=== PATIENT | male | born 1960 | race African-American/Black ===

== ENCOUNTER 2022-03-11 10:01 | Inpatient (IN) | payer MEDICARE, OTHER ==
[~2022-03-11] VITALS: Ht 190.5 cm; Wt 135.6 kg
--- NOTE | 2022-03-11 10:09 | NUR ---
BIB [facility] FROM HOME, C/O GENERALIZED WEAKNESS. PT STATED THAT HE HAS CHRONIC BACK AND LOWER EXTREMITY PAIN, DENIES CHEST PAIN. ATTACHED TO MONITOR. AWAITING MD ORDERS.
--- NOTE | 2022-03-11 10:13 | NUR ---
SUZANNE VENTURA 18. LABS DRAWN AND COLLECTED AT BEDSIDE
--- NOTE | 2022-03-11 10:20 | NUR ---
COVID TEST COLLECTED AND SENT
[2022-03-11 10:46] LABS: BASOPHILS % (AUTO) 0.4 % (0.0-2.0); EOSINOPHILS % (AUTO) 4.1 % (0.0-6.0); HEMATOCRIT 39 % (39-51); HEMOGLOBIN 12.9 g/dL (13.5-17.5); LYMPHOCYTES # (AUTO) 0.7 K/uL (0.8-4.8); LYMPHOCYTES % (AUTO) 8.2 % (20.0-44.0); MEAN CORPUSCULAR HGB CONC 33 g/dl (31.0-36.0); MEAN CORPUSCULAR VOLUME 86 fL (80-96); MONOCYTES # (AUTO) 0.7 K/uL (0.1-1.30); NEUTROPHILS # (AUTO) 6.5 K/uL (1.8-8.9); NEUTROPHILS % (AUTO) 79.3 % (43.0-81.0); PLATELET COUNT (AUTO) 226 K/uL (150-450); RED BLOOD CELL COUNT(AUTO) 4.55 MIL/uL (4.5-6.0); WHITE BLOOD COUNT (AUTO) 8.2 K/uL (4.3-11.0)
[2022-03-11] MEDS ORDERED: KETOROLAC TROMETHAMINE INJ 30 MG/ML VIAL ONE (11:19)
[2022-03-11 11:26] LABS: CALCIUM, SERUM 9.4 mg/dL (8.5-10.1); CARBON DIOXIDE 25 mmol/L (21-32); CHLORIDE 101 mmol/L (98-107); CREATININE 1.4 mg/dL (0.6-1.3); GLUCOSE 85 mg/dL (74-106); POTASSIUM 3.9 mmol/L (3.5-5.1); SODIUM SERUM 139 mmol/L (136-145); UREA NITROGEN, BLOOD 19 mg/dL (7-18)
[2022-03-11] MEDS ORDERED: KETOROLAC TROMETHAMINE INJ 30 MG/ML VIAL IV ONE (11:30)
--- NOTE | 2022-03-11 11:34 | NUR ---
CALLED NURSING SUP REGARDING PT BED
[2022-03-11 11:43] LABS: ALANINE AMINOTRANSFERASE 24 U/L (12-78); ALBUMIN 3.5 g/dL (3.4-5.0); ALKALINE PHOSPHATASE 48 U/L (46-116); ASPARTATE AMINOTRANSFERASE 24 U/L (15-37); BILIRUBIN,DIRECT 0.2 mg/dL (0.0-0.2); TOTAL PROTEIN, SERUM 8.8 g/dL (6.4-8.2)
--- NOTE | 2022-03-11 11:46 | NUR ---
X RAY AT BEDSIDE
[2022-03-11 11:49] LABS: BILIRUBIN,URINE NEGATIVE (NEGATIVE); COLOR,URINE YELLOW (YELLOW); LEUKOCYTE ESTERASE ,URINE NEGATIVE (NEGATIVE); NITRITE, URINE NEGATIVE (NEGATIVE); PROTEIN,URINE TRACE mg/dl (NEGATIVE); UGLUCOSE NEGATIVE (NEGATIVE); UROBILINOGEN,URINE 0.2 EU/dL (0.2)
[2022-03-11] MEDS ORDERED: FUROSEMIDE 40 MG/4 ML VIAL ONE (11:50)
[2022-03-11] MEDS: LIDOCAINE 5% (PATCH) 1 EA PATCH TP SCH (11:56)
[2022-03-11] MEDS ORDERED: FUROSEMIDE 40 MG/4 ML VIAL IV ONE (12:00)
--- NOTE | 2022-03-11 12:29 | NUR ---
PILE DRIVER OPERATOR/MED RECON UNABLE TO UPDATE HOME MEDICATION INFORMATION AT THIS TIME. PER PATIENT REQUESTED, SENT DANIKA TO [facility] TO OBATINED INFORMATION. CONSENT AND FAXED CONFIRMATION PLACED IN CHART.
[2022-03-11 12:39] LABS: BACTERIA,URINE None seen /HPF (None Seen); RBC,URINE 0-2 /HPF (0-2); SQUAMOUS EPITHELIAL CELL,UR Rare /HPF (None Seen); WBC,URINE 0-2 /HPF (0-3)
--- NOTE | 2022-03-11 12:52 | NUR ---
PAGED DR. ROCHA
--- NOTE | 2022-03-11 14:18 | NUR ---
room [id number]
[2022-03-11] MEDS ORDERED: MAG HYDROX/AL HYDROX/SIMETH 30 ML UDC PO PRN (15:30)
[2022-03-11] MEDS ORDERED: ZOLPIDEM TARTRATE 5 MG TABLET PO PRN (15:30)
[2022-03-11] MEDS ORDERED: Z GUARD REMEDY 4 OZ OINT TP PRN (15:30)
[2022-03-11] MEDS ORDERED: ACETAMINOPHEN 325 MG TABLET PO PRN (15:30)
[2022-03-11] MEDS ORDERED: MAGNESIUM HYDROXIDE 30 ML UDC PO PRN (15:30)
[2022-03-11] MEDS ORDERED: ONDANSETRON HCL/PF 4 MG/2 ML VIAL IVP PRN (15:30)
--- NOTE | 2022-03-11 16:21 | NUR ---
REPORT GIVEN TO NORMA FOR [place]
--- NOTE | 2022-03-11 16:39 | NUR ---
PT TRANSPORTED WITH ACLS PROTOCOLS IN PLACE.
--- NOTE | 2022-03-11 16:40 | NUR ---
BOAT OUTFITTING SUPERVISOR NOTE, PATIENT ARRIVED VIA GURNEY. AWAKE AND ALERT A&OX4. ALL VSS SR. TEMP: 98.0, HR: 81, RR: 20, SPO2: 100% ON ROOM AIR, BP:129/64. IV L AC #18G. DIET CARDIAC LOW FAT. VOIDING VIA URINAL. ALL SAFETY FALL PRECAUTIONS IN PLACE BED IN LOWEST POSITION, BED LOCK ON, BED ALARM ON, SIDE RAILS UP, CALL LIGHT WITHIN REACH. WILL CONTINUE TO MONITOR.
--- NOTE | 2022-03-11 18:12 | NUR ---
RN note Patient's sister took home all of his belongings the list and signature is in the chart.
--- NOTE | 2022-03-11 19:01 | NUR ---
RN closing report. REPORT GIVEN TO NIGHT NURSE FOR CONTINUITY OF CARE. PATIENT STABLE, ALL SAFETY PRECAUTIONS IN PLACE. ALL QUESTIONS ANSWERED.
--- NOTE | 2022-03-11 19:37 | NUR ---
ARLENE/DICER OPERATOR REPORT RECIEVED FROM DAY SHIFT NURSE, SEE FLOWSHEET FOR ASSESSMENT, PT CURRENTLY HAS NO SKIN ISSUES TO ADDRESS. PT TURNS SELF AND REPOSITIONS SELF FOR COMFORT AND CARE. WILL CONTINUE TO MONITOR THIS PT, CALL LIGHT WITHIN REACH.
[2022-03-11] MEDS: FUROSEMIDE 20 MG/2 ML VIAL IV SCH (19:57)
[2022-03-11 20:00] VITALS: BP 131/75
--- NOTE | 2022-03-11 20:12 | NUR ---
ARLENE/STREET LIGHT SERVICER SUPERVISOR NOTIFED COMPOUNDER NURSE ABOUT LASIX NEW ORDER FROM MAIL ORDER SORTER. THIS WAS CARRIED OUT AND GIVEN TO PT. CALL LIGHT WITHIN REACH. NO DISTRESS SEEN AT THIS TIME.
--- NOTE | 2022-03-11 23:00 | NUR ---
ARLENE/RESPIRATORY THERAPY ASSISTANT PT HAD REQUESTED [facility] FOR SLEEPING PILL, HOWEVER PT ALREADY HAS ONE PRN.
--- NOTE | 2022-03-12 01:45 | NUR ---
ARLENE/LOCOMOTIVE INSPECTOR PT APPEARS TO BE ASLEEP AT THIS TIME, NO NEED FOR A SLEEPING PILL. CALL LIGHT WITHIN REACH, NO ACUTE DISTRESS SEEN AT THIS TIME.
[2022-03-12 04:00] VITALS: BP 145/76
--- NOTE | 2022-03-12 04:55 | NUR ---
ARLENE/TEACHER EDUCATION DIRECTOR PT APPEARS TO BE ASLEEP AT THIS TIME, NO ACUTE DISTRESS SEEN AT THIS TIME. CALL LIGHT WITHIN REACH, WILL MONITOR THIS PT
[2022-03-12 07:31] LABS: BASOPHILS % (AUTO) 0.4 % (0.0-2.0); EOSINOPHILS % (AUTO) 7.1 % (0.0-6.0); HEMATOCRIT 36 % (39-51); HEMOGLOBIN 11.7 g/dL (13.5-17.5); LYMPHOCYTES # (AUTO) 0.7 K/uL (0.8-4.8); LYMPHOCYTES % (AUTO) 10.5 % (20.0-44.0); MEAN CORPUSCULAR HGB CONC 33 g/dl (31.0-36.0); MEAN CORPUSCULAR VOLUME 87 fL (80-96); MONOCYTES % (AUTO) 14.2 % (2.0-12.0); NEUTROPHILS # (AUTO) 4.7 K/uL (1.8-8.9); NEUTROPHILS % (AUTO) 67.8 % (43.0-81.0); PLATELET COUNT (AUTO) 207 K/uL (150-450); RED BLOOD CELL COUNT(AUTO) 4.11 MIL/uL (4.5-6.0)
--- NOTE | 2022-03-12 07:38 | NUR ---
RN OPENING NOTE RECIEVED PATIENT FROM NIGHTSHIFT. PATIENT CURRENTLY ASLEEP IN BED, WITH OXYGEN SATURATION IN THE 90S ON ROOM AIR. NO SIGNS OF RESPIRATORY DISTRESS NOTED. ATTACHED TO EXTERNAL MONITOR READING SINUS RHYTHM. URINAL AT THE BEDSIDE. IV ACCESS NOTED ON LEFT AC 18 GAUGE, HEPARIN LOCKED. SAFETY MEASURES IN PLACE, BED IN LOWEST POSITION, SIDE RAILS UP, CALL LIGHT WITHIN REACH. WILL CONTINUE PLAN OF CARE AND ANTICIPATE NEEDS.
[2022-03-12 08:00] VITALS: BP 145/77
[2022-03-12] MEDS: FUROSEMIDE 20 MG/2 ML VIAL IV SCH ×2 (08:07→16:01)
[2022-03-12] MEDS: PANTOPRAZOLE 40 MG TABLET.DR PO SCH (08:08)
[2022-03-12] MEDS: HEPARIN SODIUM, PORCINE 5000 UNITS/1 ML VIAL SQ SCH ×2 (08:10→20:10)
[2022-03-12 09:03] LABS: CALCIUM, SERUM 9.3 mg/dL (8.5-10.1); CREATININE 1.3 mg/dL (0.6-1.3); MAGNESIUM 2.1 mg/dL (1.8-2.4); PHOSPHORUS 4.2 mg/dL (2.5-4.9); POTASSIUM 3.9 mmol/L (3.5-5.1)
[2022-03-12 09:56] LABS: THYROID STIMULATING HORMONE 0.77 uIU/mL (0.358-3.74)
[2022-03-12] MEDS: LIDOCAINE 5% (PATCH) 1 EA PATCH TP SCH (11:03)
[2022-03-12] MEDS ORDERED: ACET-2605 PO (16:55)
[2022-03-12] MEDS ORDERED: MICO25PO2 TD (16:55)
[2022-03-12] MEDS ORDERED: METF-440 PO (16:55)
[2022-03-12] MEDS ORDERED: SIMV-46 PO (16:55)
[2022-03-12] MEDS ORDERED: HYDR113O TP (16:55)
[2022-03-12] MEDS ORDERED: MELO-107 PO (16:55)
[2022-03-12] MEDS ORDERED: OMEP20CA15 PO (16:55)
[2022-03-12] MEDS ORDERED: MULT-447 PO (16:55)
[2022-03-12] MEDS ORDERED: SPIR25TA6 PO (16:55)
[2022-03-12] MEDS ORDERED: CAPS1ADH TD (16:55)
[2022-03-12] MEDS ORDERED: TAMS-12 PO (16:55)
[2022-03-12] MEDS ORDERED: PSYL3.4P6 PO (16:55)
[2022-03-12] MEDS ORDERED: LIDO30AD10 TP (16:55)
[2022-03-12] MEDS ORDERED: CARV25TA2 PO (16:55)
[2022-03-12] MEDS ORDERED: ASPI-1169 PO (16:55)
[2022-03-12] MEDS ORDERED: ALBU18HF2 IH (16:55)
[2022-03-12] MEDS ORDERED: FERR324T PO (16:55)
[2022-03-12] MEDS ORDERED: LISI40TA13 PO (16:55)
[2022-03-12] MEDS ORDERED: DICL100G26 TP (16:55)
[2022-03-12] MEDS ORDERED: CHOL100043 PO (16:55)
--- NOTE | 2022-03-12 18:36 | NUR ---
RN CLOSING NOTE PATIENT CURRENTLY RESTING IN BED, WITH OXYGEN SATURATION IN THE 90S ON ROOM AIR. NO SIGNS OF RESPIRATORY DISTRESS NOTED. ATTACHED TO EXTERNAL MONITOR READING SINUS RHYTHM. URINAL AT THE BEDSIDE. IV ACCESS NOTED ON RIGHT UPPER ARM MIDLINE 18 GAUGE. SKIN ALTERATIONS NOTED ON BILATERAL KNEES, DOCUMENTED AND IN PHYSICAL CHART. SAFETY MEASURES IN PLACE, BED IN LOWEST POSITION, SIDE RAILS UP, CALL LIGHT WITHIN REACH. ALL DUE MEDICATIONS GIVEN, KEPT CLEAN AND DRY THROUGHOUT SHIFT. WILL ENDORSE TO NIGHTSHIFT RN FOR CONTINUATION OF CARE.
--- NOTE | 2022-03-12 19:41 | NUR ---
JUNIOR NETWORK ADMINISTRATOR OPENING NOTE RECEIVED PATIENT AWAKE IN BED. A/O X4 AND ABLE TO MAKE NEEDS KNOWN. PT STABLE ON ROOM AIR. NO SOB OR S/S OF RESPIRATORY DISTRESS. BREATHING EVEN AND UNLABORED. ON EXTERNAL RESEARCH PHYSICIAN READING SR. IV ACCESS LATONIA MIDLINE 18 GAUGE, INTACT AND PATENT. SAFETY PRECAUTIONS IN PLACE. BED IN LOWEST LOCKED POSITION, HOB ELEVATED, SIDE RAILS UP X2, AND CALL LIGHT AND TABLE WITHIN REACH. ALL NEEDS MET AT THIS TIME.
[2022-03-12 20:00] VITALS: BP 126/72
[2022-03-13] VITALS: BP 123/76
[2022-03-13 04:00] VITALS: BP 126/82
--- NOTE | 2022-03-13 06:50 | NUR ---
BID MANAGER CLOSING NOTE PATIENT AWAKE IN BED. A/O X4 AND ABLE TO MAKE NEEDS KNOWN. PT STABLE ON ROOM AIR. NO SOB OR S/S OF RESPIRATORY DISTRESS. BREATHING EVEN AND UNLABORED. ON EXTERNAL RECRUITING SPECIALIST READING SR 72. IV ACCESS LATONIA MIDLINE 18 GAUGE, INTACT AND PATENT. ALL DUE MEDS GIVEN ORDERED. SAFETY PRECAUTIONS IN PLACE AT ALL TIMES. BED IN LOWEST LOCKED POSITION, HOB ELEVATED, SIDE RAILS UP X2, AND CALL LIGHT AND TABLE WITHIN REACH. ALL NEEDS MET AT THIS TIME AND WILL ENDORSE TO ONCOMING NURSE FOR [place].
[2022-03-13 07:20] LABS: BASOPHILS % (AUTO) 0.3 % (0.0-2.0); EOSINOPHILS % (AUTO) 6.5 % (0.0-6.0); HEMATOCRIT 37 % (39-51); HEMOGLOBIN 12.3 g/dL (13.5-17.5); LYMPHOCYTES # (AUTO) 0.8 K/uL (0.8-4.8); LYMPHOCYTES % (AUTO) 12.1 % (20.0-44.0); MEAN CORPUSCULAR HGB CONC 33 g/dl (31.0-36.0); MEAN CORPUSCULAR VOLUME 87 fL (80-96); MONOCYTES # (AUTO) 0.9 K/uL (0.1-1.30); MONOCYTES % (AUTO) 14.4 % (2.0-12.0); NEUTROPHILS # (AUTO) 4.2 K/uL (1.8-8.9); NEUTROPHILS % (AUTO) 66.7 % (43.0-81.0); PLATELET COUNT (AUTO) 210 K/uL (150-450); RED BLOOD CELL COUNT(AUTO) 4.27 MIL/uL (4.5-6.0); WHITE BLOOD COUNT (AUTO) 6.3 K/uL (4.3-11.0)
--- NOTE | 2022-03-13 07:23 | NUR ---
CITY ROUTEMAN OPENING NOTE RECEIVED PATIENT AWAKE IN BED. A/O X4 AND ABLE TO MAKE NEEDS KNOWN. PT STABLE ON ROOM AIR. NO SOB OR S/S OF RESPIRATORY DISTRESS. BREATHING EVEN AND UNLABORED. ON EXTERNAL ELIGIBILITY COUNSELOR READING SR. IV ACCESS LATONIA MIDLINE 18 GAUGE, INTACT AND PATENT. SAFETY PRECAUTIONS IN PLACE. BED IN LOWEST LOCKED POSITION, HOB ELEVATED, SIDE RAILS UP X2, AND CALL LIGHT AND TABLE WITHIN REACH.
[2022-03-13 07:58] LABS: ALBUMIN 3.1 g/dL (3.4-5.0); BILIRUBIN,TOTAL 0.9 mg/dL (0.2-1.0); CALCIUM, SERUM 8.9 mg/dL (8.5-10.1); CREATININE 1.2 mg/dL (0.6-1.3); MAGNESIUM 2.2 mg/dL (1.8-2.4); PHOSPHORUS 3.8 mg/dL (2.5-4.9); POTASSIUM 3.7 mmol/L (3.5-5.1); TOTAL PROTEIN, SERUM 8.3 g/dL (6.4-8.2)
[2022-03-13 08:04] VITALS: BP 136/82
[2022-03-13] MEDS: FUROSEMIDE 20 MG/2 ML VIAL IV SCH ×2 (09:04→17:13)
[2022-03-13] MEDS: PANTOPRAZOLE 40 MG TABLET.DR PO SCH (09:04)
[2022-03-13] MEDS: HEPARIN SODIUM, PORCINE 5000 UNITS/1 ML VIAL SQ SCH ×2 (09:06→20:38)
[2022-03-13] MEDS: LIDOCAINE 5% (PATCH) 1 EA PATCH TP SCH (11:54)
[2022-03-13] MEDS: HYDROCODONE/APAP 5/325MG TABLET PO PRN ×2 (11:54→19:58)
[2022-03-13 12:04] VITALS: BP 131/80
[2022-03-13] MEDS: METOPROLOL TARTRATE 25 MG TABLET PO SCH ×2 (14:24→20:35)
[2022-03-13 16:00] VITALS: BP 136/83
--- NOTE | 2022-03-13 18:44 | NUR ---
CERTIFIED PHYSICIAN'S ASSISTANT CLOSING NOTE PATIENT AWAKE IN BED. A/O X4 AND ABLE TO MAKE NEEDS KNOWN. PT STABLE ON ROOM AIR. NO SOB OR S/S OF RESPIRATORY DISTRESS. BREATHING EVEN AND UNLABORED. ON EXTERNAL SPARMAKER . IV ACCESS LATONIA MIDLINE 18 GAUGE, INTACT AND PATENT. ALL DUE MEDS GIVEN ORDERED. SAFETY PRECAUTIONS IN PLACE AT ALL TIMES. BED IN LOWEST LOCKED POSITION, HOB ELEVATED, SIDE RAILS UP X2, AND CALL LIGHT AND TABLE WITHIN REACH. ALL NEEDS MET AT THIS TIME AND WILL ENDORSE TO ONCOMING NURSE FOR [place].
--- NOTE | 2022-03-13 19:18 | NUR ---
MAINFRAME APPLICATIONS DEVELOPER OPENING NOTE PATIENT AWAKE IN BED. A/O X4 AND ABLE TO MAKE NEEDS KNOWN. PT STABLE ON ROOM AIR. NO SOB OR S/S OF RESPIRATORY DISTRESS. BREATHING EVEN AND UNLABORED. ON EXTERNAL MATRIX DRIER TENDER . IV ACCESS LATONIA MIDLINE 18 GAUGE, INTACT AND PATENT. SAFETY PRECAUTIONS IN PLACE AT ALL TIMES. BED IN LOWEST LOCKED POSITION, HOB ELEVATED, SIDE RAILS UP X2, AND CALL LIGHT AND TABLE WITHIN REACH. ALL NEEDS MET AT THIS TIME AND WILL CONTINUE TO MONITOR.
[2022-03-13 20:00] VITALS: BP 136/78
--- NOTE | 2022-03-13 20:02 | NUR ---
WEAVING TEACHER NOTES PRN NORCO GIVEN FOR PAIN 02/24 TOLERATED WELL. WILL CONTINUE TO MONITOR.
[2022-03-14] MEDS: HYDROCODONE/APAP 5/325MG TABLET PO PRN ×3 (02:12→20:07)
--- NOTE | 2022-03-14 02:13 | NUR ---
BUSINESS BANKING REPRESENTATIVE NOTES PRN NORCO GIVEN FOR PAIN 02/24 TOLERATED WELL. WILL CONTINUE TO MONITOR.
[2022-03-14 04:17] VITALS: BP 132/73
--- NOTE | 2022-03-14 06:41 | NUR ---
CLEAN RICE GRADER AND REEL TENDER CLOSING NOTE PATIENT AWAKE IN BED. A/O X4 AND ABLE TO MAKE NEEDS KNOWN. PT STABLE ON ROOM AIR. NO SOB OR S/S OF RESPIRATORY DISTRESS. BREATHING EVEN AND UNLABORED. ON EXTERNAL TUFTER OPERATOR . IV ACCESS LATONIA MIDLINE 18 GAUGE, INTACT AND PATENT. SAFETY PRECAUTIONS IN PLACE AT ALL TIMES. BED IN LOWEST LOCKED POSITION, HOB ELEVATED, SIDE RAILS UP X2, AND CALL LIGHT AND TABLE WITHIN REACH. ALL NEEDS MET AT THIS TIME. ALL DUE MEDS GIVEN AND TOLERATED WELL. PRN PAIN MEDICATION PROVIDED NEEDED. WILL ENDORSE CARE TO DAY SHIFT NURSE.
[2022-03-14 09:00] VITALS: BP 144/80
[2022-03-14] MEDS: METOPROLOL TARTRATE 25 MG TABLET PO SCH ×2 (09:31→21:06)
[2022-03-14] MEDS: FUROSEMIDE 20 MG/2 ML VIAL IV SCH ×2 (09:32→17:27)
[2022-03-14] MEDS: HEPARIN SODIUM, PORCINE 5000 UNITS/1 ML VIAL SQ SCH ×2 (09:39→21:07)
[2022-03-14] MEDS: PANTOPRAZOLE 40 MG TABLET.DR PO SCH (09:43)
[2022-03-14] MEDS: LIDOCAINE 5% (PATCH) 1 EA PATCH TP SCH (12:03)
--- NOTE | 2022-03-14 19:42 | NUR ---
MS RN OPENING NOTES: RECEIVED PATIENT AWAKEIN BED, BED IN LOW POSITION CALL LIGHTS WITHIN REACH, NO COMPLAIN OF PAIN AND DISCOMFORT AT THIS TIME, ON ROOM AIR SATURATING WELL , PATIENT IS A/O X4 ABLE TO EXPRESS NEEDS, ON BED RST WITH IV LINE AT LATONIA MIDLINE SL, PATIENT KEPT CLEAN AND DRY ALL NEEDS MET WILL CONTINUE TO MONITOR.
[2022-03-14 20:00] VITALS: BP 126/79
[2022-03-14 21:00] VITALS: BP 126/79
[2022-03-15] VITALS: BP 128/73
[2022-03-15 04:00] VITALS: BP 121/93
--- NOTE | 2022-03-15 06:21 | NUR ---
MS RN CLOSING NOTES; PATIENT SLEEP IN BED COMFORTABLY, AROUSABLE TO VERBAL STIMULI, BED IN LOW POSITION CALL LIGHTS WITHIN REACH, ON ROOM AIR SATURATING WELL, PATIENT KEPT CLEAN AND DRY ALL NEEDS MET ENDORSE TO INCOMING SHIFT.
--- NOTE | 2022-03-15 07:43 | NUR ---
MS RN OPENING NOTES PATIENT is AWAKE IN BED.PATIENT IS ALERT AND ORIENTED X4. PATIENT HAS RIGHT UPPER ARM MIDLINE. PATIENT IS ABLE TO MAKE NEEDS KNOWN.PATIENT IS ON ROOM AIR,TOLERATING WELL.ALL SAFETY MEASURES IN PLACE. BED LOCKED IN LOWEST POSITION. CALL LIGHT WITHIN REACH. SIDE RAILS X2 UP. PENDING DISCHARGE. WAITING FOR AMBULANCE FOR PICKUP. COMMUNITY CENTER COORDINATOR RN GAVE REPORT TO [facility] TO [facility].
[2022-03-15] MEDS: HYDROCODONE/APAP 5/325MG TABLET PO PRN (08:18)
[2022-03-15] MEDS: PANTOPRAZOLE 40 MG TABLET.DR PO SCH (08:19)
--- NOTE | 2022-03-15 08:54 | NUR ---
DISCHARGE GAVE REPORT TO TRANSPORT AMBULANCE
--- NOTE | 2022-03-15 11:42 | NUR ---
SS consult requested for homelessness. Pt. is a 61-year-old male who was admitted to hospital on 03/11/2022 due to congestive heart failure. Per notes, pt. came from home [id number], [place] [address]. Per notes, pt. will DC to [facility] [phone].
== END 2022-03-15 11:58 | DRG 562 ==
LOC: ER 10:03 → EDBD 15:28 → TRANSITION 15:28 → TELE1 16:23 → MEDSG1 03-13 16:07
PROVIDERS: ADMIT Student in an Organized Health Care Education/Training Program
PROC: 05H533Z Insertion of Infusion Device into Right Subclavian Vein, Percutaneous Approach (ICD-10-PCS; principal; 2022-03-12)
PROC: B546ZZA Ultrasonography of Right Subclavian Vein, Guidance (ICD-10-PCS; 2022-03-12)
DX: S82.862A Displaced Maisonneuve's fracture of left leg, initial encounter for closed fracture (principal); N17.0 Acute kidney failure with tubular necrosis; E87.2 Acidosis; I50.32 Chronic diastolic (congestive) heart failure; I42.9 Cardiomyopathy, unspecified; E11.9 Type 2 diabetes mellitus without complications; D63.8 Anemia in other chronic diseases classified elsewhere; E88.09 Other disorders of plasma-protein metabolism, not elsewhere classified; I25.10 Atherosclerotic heart disease of native coronary artery without angina pectoris; I25.2 Old myocardial infarction; R53.1 Weakness; I11.0 Hypertensive heart disease with heart failure; M54.50 Low back pain, unspecified; S81.002A Unspecified open wound, left knee, initial encounter; S81.001A Unspecified open wound, right knee, initial encounter; W19.XXXA Unspecified fall, initial encounter; Y93.9 Activity, unspecified; Y92.009 Unspecified place in unspecified non-institutional (private) residence as the place of occurrence of the external cause; Z98.61 Coronary angioplasty status; Z79.84 Long term (current) use of oral hypoglycemic drugs; Z20.822 Contact with and (suspected) exposure to COVID-19
CPT/HCPCS: 36410; 36415; 71045-TC; 73564-TC; 73600-TC; 73610-TC; 73630-TC; 80048-TC; 80053-TC; 80076-TC; 81001; 82962-TC; 83605-TC; 83735-TC; 83880; 84100-TC; 84443-TC; 84484-TC; 85025-TC; 87040-TC; 87081-TC; 87086-TC; 93307-TC; 97116-TC; 97530-TC; A6403; C9803; G0378; J1644; J1885; J1940; J7050